=== PATIENT | male | born 1965 | race Two or more races ===

== ENCOUNTER 2021-12-19 14:35 | Emergency (ER) | payer SELFPAY ==
[~2021-12-19] VITALS: Ht 185.4 cm; Wt 133.4 kg
[2021-12-19] MEDS ORDERED: ONDANSETRON ODT 4 MG TAB PO ONE (18:00)
[2021-12-19] MEDS ORDERED: ACETAMINOPHEN 325 MG TAB PO ONE (18:00)
[2021-12-19 18:20] VITALS: BP 110/74
== END 2021-12-19 18:37 | disposition home or self-care (01) ==
LOC: ER 14:35
DX: S00.03XA Contusion of scalp, initial encounter (principal); R50.9 Fever, unspecified; I25.2 Old myocardial infarction; I10 Essential (primary) hypertension; E78.5 Hyperlipidemia, unspecified; Z20.822 Contact with and (suspected) exposure to COVID-19; Z98.61 Coronary angioplasty status; W22.8XXA Striking against or struck by other objects, initial encounter; Y93.89 Activity, other specified; Y92.89 Other specified places as the place of occurrence of the external cause; Y99.8 Other external cause status
CPT/HCPCS: 36415; 70450; 87426; 87804; 99284; Q0162